=== PATIENT | male | born 1975 | race Caucasian/White ===

== ENCOUNTER 2021-01-30 09:18 | Day surgery (SDC) | payer MEDICAID, SELFPAY ==
[2021-01-30] MEDS ORDERED: fentaNYL citrate 0.05 MG/ML VIAL ONE (10:38)
[2021-01-30] MEDS ORDERED: diphenhydrAMINE 50 MG/ML VIAL ONE (10:38)
[2021-01-30] MEDS ORDERED: MIDAZOLAM 5 MG/5 ML VIAL ONE (10:39)
[2021-01-30] MEDS ORDERED: LIDOCAINE 2% 100 MG/5 ML UJET TP ONE (10:39)
[2021-01-30] MEDS ORDERED: fentaNYL citrate 0.05 MG/ML VIAL IVP ONE (11:50)
[2021-01-30] MEDS ORDERED: MIDAZOLAM 2 MG/2 ML VIAL IVP ONE (11:50)
== END 2021-01-30 13:01 | disposition home or self-care (01) ==
LOC: MDS 09:18 → MMU 09:23 → MDS 13:01
PROVIDERS: ATTEND Internal Medicine Gastroenterology
DX: K62.5 Hemorrhage of anus and rectum (principal); Z80.0 Family history of malignant neoplasm of digestive organs; K92.0 Hematemesis; R53.1 Weakness; Z95.0 Presence of cardiac pacemaker; Z20.822 Contact with and (suspected) exposure to COVID-19; Z79.899 Other long term (current) drug therapy
CPT/HCPCS: 43239; 45378; 88305; 88312; 88313; 88342; J2250; J3010; U0003; J1200